=== PATIENT | female | born 1995 | race Caucasian/White ===

== ENCOUNTER 2016-11-16 21:24 | Emergency (ER) | payer OTHER ==
[2016-11-16 21:36] VITALS: BP 126/73
[2016-11-16] MEDS ORDERED: Sulfamethox/Trimethoprim DS 800/160* TAB PO ONE (22:57)
--- NOTE | 2016-11-16 22:57 | UC ---
Complaint Female HPI - HPI Summary HPI Summary: 3 DAYS OF URINARY FREQUENCY AND URGENCY. NO FEVER, NAUSEA OR BACK PAIN. NO VAGINAL DISCHARGE. - History Of Current Complaint Chief Complaint: UCGI Stated Complaint: UTI TYPE SYMPTOMS Time Seen by Provider: 11/16/16 21:35 Hx Obtained From: Patient Hx Last Menstrual Period: 2 wks ago Onset/Duration: Gradual Onset, Lasting Days, Still Present Timing: Constant Severity Initially: Moderate Severity Currently: Moderate Pain Intensity: 5 Pain Scale Used: 0-10 Numeric Character: Burning Aggravating Factor(s): Urination Alleviating Factor(s): Nothing Associated Signs And Symptoms: Negative: Fever, Back Pain, Vaginal Bleeding/ Discharge, Vaginal Discharge, Nausea, Vomiting(# Of Episodes =), Genital Swelling, Genital Blisters - Allergies/Home Medications Allergies/Adverse Reactions: Allergies Allergy/AdvReac Type Severity Reaction Status Date / Time No Known Allergies Allergy Verified 11/16/16 21:37 Home Medications: Home Medications Control Pill 11/16/16 [History] PMH/Surg Hx/FS Hx/Imm Hx Previously Healthy: Yes - Surgical History Surgical History: None - Family History Known Family History: Positive: Diabetes Negative: Hypertension - Social History Alcohol Use: Occasionally Substance Use Type: None Smoking Status (MU): Never Smoked Tobacco Review of Systems Constitutional: Negative Respiratory: Negative Cardiovascular: Negative Gastrointestinal: Negative Genitourinary: Dysuria, Frequency All Other Systems Reviewed And Are Negative: Yes Physical Exam Triage Information Reviewed: Yes Appearance: Well-Appearing, No Pain Distress, Well-Nourished Vital Signs: Initial Vital Signs Temp 98.8 F 11/16/16 21:32 Pulse 74 11/16/16 21:32 Resp 18 11/16/16 21:32 BP 126/73 11/16/16 21:32 Pulse Ox 100 11/16/16 21:32 Vital Signs Reviewed: Yes Eyes: Positive: Conjunctiva Clear ENT: Positive: Hearing grossly normal Neck: Positive: Supple Respiratory: Positive: No respiratory distress, No accessory muscle use Cardiovascular: Positive: Pulses Normal Abdomen Description: Positive: Nontender, Soft. Negative: CVA Tenderness (R), CVA Tenderness (L), Distended, Guarding Musculoskeletal: Positive: No Edema Neurological: Positive: Alert Psychological: Positive: Age Appropriate Behavior Skin: Negative: rashes Diagnostics - Laboratory Diagnostic Studies Completed/Ordered: URINE DIP SP GR. 1.005, 1+ LEUKS Complaint Female Dx - Differential Dx/Diagnosis Provider Diagnoses: UTI Discharge - Discharge Plan Condition: Stable Disposition: HOME Prescriptions: Sulfamethox/Trimethoprim DS* [Bactrim DS 800/160 TAB*] 1 tab PO BID #9 tab Patient Education Materials: Urinary Tract Infection in Women (ED) Referrals: No Primary Care Phys,NOPCP [Primary Care Provider] - Additional Instructions: FOLLOW-UP WITH [facility] OR HERE IF NEEDED. TAKE THE ANTIBIOTICS FOR THE FULL 5 DAYS. WE WILL CALL YOU IF YOUR URINE CULTURE INDICATES THAT WE NEED TO CHANGE YOUR MEDICINE. STAY HYDRATED.
== END 2016-11-16 23:00 | disposition home or self-care (01) ==
LOC: UCEAST 21:24
DX: N39.0 Urinary tract infection, site not specified (principal)
CPT/HCPCS: 81002; 87086; 99202; A9270-GY; G0463